=== PATIENT | female | born 1940 | race Caucasian/White ===

== ENCOUNTER 2020-08-22 16:01 | Inpatient (IN) | payer OTHER ==
[~2020-08-22 16:01] MED LIST: ALLEGRA ALLERG180 M1 PO; ASCORBIC ACID500 MG PO; ASPIRIN EC81 MG PO; CITALOPRAM HBR20 MG PO; COREG 6.25MG6.25 MG PO; COUMADIN 2MG TAB2 MG PO; COUMADIN1 MG PO; COUMADIN3 MG PO; COZAAR50 MG PO; IRON PO; KLOR-CON M 1010 MEQ PO; LASIX80 MG PO; PRILOSEC20 MG PO; REMERON15 MG PO; SYNTHROID75 MCG PO; TURMERIC500 M1 PO; VITAMIN D3 PO
[2020-08-22 16:55] LABS: BASOPHIL 0.4 % (0-2); EOSINOPHIL 2.1 % (0-7); HCT 32.9 % (37.0-47.0); HGB 9.8 g/dl (12.5-16.0); LYMPHOCYTE 24.6 % (15-48); MCH 29.3 pg (25.0-31.0); MCHC 29.8 g/dL (32.0-36.0); MCV 98.2 fL (78.0-100.0); MONOCYTE 13.7 % (0-12); MPV 10.8 fL (6.0-9.5); NEUTROPHIL 57.1 % (41-80); NRBC 0.3; PLT 197 K/uL (150-400); RBC 3.35 M/uL (4.20-5.40); RDW 16.7 % (11.5-14.0); WBC 7.3 K/uL (4.0-10.5)
[2020-08-22 17:05] LABS: ALBUMIN 2.4 g/dL (3.4-5.0); BILIRUBIN - TOTAL 0.6 mg/dL (0.2-1.0); CREATININE 0.94 mg/dL (0.51-0.95); GLOBULIN (CALCULATION) 3.8 g/dL; POTASSIUM 3.4 mmol/L (3.5-5.1); TOTAL PROTEIN 6.2 g/dL (6.4-8.2)
[2020-08-22 17:09] LABS: LACTIC ACID 0.8 mmol/L (0.4-1.9)
[2020-08-22 17:21] LABS: INR 3.5 (0.9-1.2); PROTHROMBIN TIME 33.5 SECONDS (11.4-13.6)
[2020-08-22 19:20] LABS: BILIRUBIN NEGATIVE (NEGATIVE); BLOOD NEGATIVE Ery/uL (NEGATIVE); CLARITY CLEAR (CLEAR); COLOR YELLOW (YELLOW); GLUCOSE (U) NORMAL (NORMAL); LEUKOCYTES NEGATIVE Leu/uL (NEGATIVE); NITRITE NEGATIVE (NEGATIVE); PROTEIN NEGATIVE (NEGATIVE)
[2020-08-22] MEDS ORDERED: LASIX40 MG PO (23:57)
[2020-08-22] MEDS ORDERED: IRON18 MG PO (23:57)
[2020-08-22] MEDS ORDERED: CELEBREX 200MG200 MG PO (23:57)
[2020-08-22] MEDS ORDERED: PRILOSEC20 MG PO (23:58)
[2020-08-22] MEDS ORDERED: ASCORBIC ACID500 MG PO (23:58)
[2020-08-22] MEDS ORDERED: PROTONIX 40MG T40 MG PO (23:59)
[2020-08-23] MEDS ORDERED: ASPIRIN325 MG PO
[2020-08-23] MEDS ORDERED: SYNTHROID25 MCG PO
[2020-08-23] MEDS ORDERED: SINGULAIR10 MG PO (00:01)
[2020-08-23] MEDS ORDERED: CELEXA10 MG PO (00:02)
[2020-08-23] MEDS ORDERED: POTASSIUM CHLOR8 MEQ PO (00:02)
[2020-08-23] MEDS ORDERED: VITAMIN D310 MC3 PO (00:03)
[2020-08-23] MEDS ORDERED: COREG 6.25MG6.25 MG PO (00:03)
[2020-08-23] MEDS ORDERED: JANTOVEN1 MG PO (00:05)
[2020-08-23] MEDS ORDERED: VENTOLIN HFA IN18 GM INH (00:08)
[2020-08-23] MEDS ORDERED: PROVENTIL2 MG/5 ML INH (00:10)
--- NOTE | 2020-08-23 01:29 | NUR ---
PATIENT STATED HAS HOME CPAP AND DID NOT BRING. DOES WEAR 2L OXYGEN AT HOME AND CURRENTLY ON 2LNC. DAUGHTER AT BEDSIDE. 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
[2020-08-23 05:56] LABS: INR 3.47 (0.9-1.2); PROTHROMBIN TIME 33.3 SECONDS (11.4-13.6)
[2020-08-23 06:14] LABS: BUN/CREAT RATIO (CALC) 14.4 RATIO; CREATININE 0.9 mg/dL (0.51-0.95); FT4 (FREE T4) 1.2 ng/dL (0.76-1.46); POTASSIUM 4.5 mmol/L (3.5-5.1)
[2020-08-23 06:18] LABS: MAGNESIUM 2.7 mg/dL (1.8-2.4)
[2020-08-23 06:36] LABS: BASOPHIL 0.7 % (0-2); EOSINOPHIL 1.7 % (0-7); HCT 34.2 % (37.0-47.0); HGB 9.7 g/dl (12.5-16.0); LYMPHOCYTE 24.4 % (15-48); MCHC 28.4 g/dL (32.0-36.0); MCV 102.1 fL (78.0-100.0); MONOCYTE 14.8 % (0-12); MPV 10.8 fL (6.0-9.5); NEUTROPHIL 55.9 % (41-80); NRBC 0.5; PLT 222 K/uL (150-400); RBC 3.35 M/uL (4.20-5.40); WBC 9.2 K/uL (4.0-10.5)
[2020-08-23 15:07] LABS: RETICULOCYTE COUNT 3.8 % (1.0-2.0)
[2020-08-23 15:18] LABS: IRON % SATURATION 11.5 %SAT (20-50)
[2020-08-23 15:43] LABS: FOLIC ACID (SERUM) 16.7 ng/mL (8.6-58.9)
--- NOTE | 2020-08-24 05:16 | NUR ---
PT. GOT COMBATIVE AND CONFUSED ON WHERE SHE WAS AROUND 2100 08/23/20. HALDOL 2.5MG IM WAS ORDERED AND SCANNED WITH INTENTIONS OF BEING GIVEN BUT WAS NOT GIVEN. PT. SEEMED TO SETTLE DOWN AND REST AND THE HALDOL WAS NOT GIVEN. COULD NOT GO BACK AND CHART AGAINST BECAUSE IT FELL OF EMAR.
[2020-08-24 06:23] LABS: BASOPHIL 0.7 % (0-2); EOSINOPHIL 1.9 % (0-7); HCT 30.7 % (37.0-47.0); LYMPHOCYTE 33.4 % (15-48); MCH 29.3 pg (25.0-31.0); MCHC 29.3 g/dL (32.0-36.0); MONOCYTE 11.3 % (0-12); MPV 10.8 fL (6.0-9.5); NEUTROPHIL 50.3 % (41-80); NRBC 0.3; PLT 231 K/uL (150-400); RBC 3.07 M/uL (4.20-5.40); RDW 17.1 % (11.5-14.0); WBC 6.8 K/uL (4.0-10.5)
[2020-08-24 06:24] LABS: INR 2.77 (0.9-1.2); PROTHROMBIN TIME 27.9 SECONDS (11.4-13.6)
[2020-08-24 06:39] LABS: BUN 11 mg/dL (7-18); BUN/CREAT RATIO (CALC) 10.3 RATIO; CHLORIDE 106 mmol/L (98-107); CO2 (BICARBONATE) 31 mmol/L (21-32); CREATININE 1.07 mg/dL (0.51-0.95); GLUCOSE 94 mg/dL (74-106); MAGNESIUM 2.3 mg/dL (1.8-2.4)
[2020-08-24 06:54] LABS: PRO-BNP 2673 pg/mL (<450)
--- NOTE | 2020-08-24 17:01 | NUR ---
08/24/2020 Ms. Whitman shares a home with her spouse and daughter. She has home 02, C-PAP, rw, and [id number]. VNA is current. Patient wisshes to continue with VNA at discharge. VNA ref made via [employer]; affliaition explained.
[2020-08-25 06:20] LABS: PROTHROMBIN TIME 29.7 SECONDS (11.4-13.6)
[2020-08-25 06:34] LABS: BUN/CREAT RATIO (CALC) 13.5 RATIO; CREATININE 0.96 mg/dL (0.51-0.95); POTASSIUM 4.4 mmol/L (3.5-5.1)
[2020-08-25] MEDS ORDERED: JANTOVEN1 MG PO (11:32)
[2020-08-25] MEDS ORDERED: PREDNISONE 10MG10 MG PO (11:32)
[2020-08-25] MEDS ORDERED: SPIRIVA 18MCG18 MCG INH (11:46)
[2020-08-25] MEDS ORDERED: ADVAIR 100-501 EACH INH (11:46)
[2020-08-25] MEDS ORDERED: CARDIZEM CD180 MG PO (11:59)
== END 2020-08-25 13:40 | disposition home or self-care (01) | DRG 308 ==
LOC: FER 16:01 → FICU 23:19 → FTCU 08-24 14:15
PROVIDERS: Emergency Medicine; Internal Medicine; ADMIT Allergy & Immunology
DX: I48.0 Paroxysmal atrial fibrillation (principal); I50.23 Acute on chronic systolic (congestive) heart failure; J44.1 Chronic obstructive pulmonary disease with (acute) exacerbation; J96.10 Chronic respiratory failure, unspecified whether with hypoxia or hypercapnia; I11.0 Hypertensive heart disease with heart failure; T45.515A Adverse effect of anticoagulants, initial encounter; Z20.828 Contact with and (suspected) exposure to other viral communicable diseases; G47.33 Obstructive sleep apnea (adult) (pediatric); K21.9 Gastro-esophageal reflux disease without esophagitis; G40.909 Epilepsy, unspecified, not intractable, without status epilepticus; E78.5 Hyperlipidemia, unspecified; I25.10 Atherosclerotic heart disease of native coronary artery without angina pectoris; F03.90 Unspecified dementia, unspecified severity, without behavioral disturbance, psychotic disturbance, mood disturbance, and anxiety; Z99.81 Dependence on supplemental oxygen; Z95.1 Presence of aortocoronary bypass graft; Z87.891 Personal history of nicotine dependence; Z90.710 Acquired absence of both cervix and uterus; Z98.890 Other specified postprocedural states; Z79.82 Long term (current) use of aspirin; Z79.01 Long term (current) use of anticoagulants; Z79.899 Other long term (current) drug therapy; Z95.2 Presence of prosthetic heart valve; E03.9 Hypothyroidism, unspecified; I25.5 Ischemic cardiomyopathy
CPT/HCPCS: 36415; 71045; 80048; 80053; 80162; 81003; 82150; 82607; 82746; 83540; 83550; 83605; 83735; 83880; 84145; 84439; 84443; 84484; 85025; 85610; 87040; 93005; 94010; 94640; 94762; 97162; 97166; 97530; 97535; J1630; J1940; J2916; J3475; J7050; J7512; U0002

== ENCOUNTER 2021-01-16 04:04 | Day surgery (SDCO) | payer OTHER ==
[~2021-01-16 04:04] MED LIST changes: +ADVAIR 100-501 EACH INH; +ASPIRIN325 MG PO; +CARDIZEM CD180 MG PO; +CELEBREX 200MG200 MG PO; +CELEXA10 MG PO; +IRON18 MG PO; +JANTOVEN1 MG PO; +LASIX40 MG PO; +POTASSIUM CHLOR8 MEQ PO; +PREDNISONE 10MG10 MG PO; +PROTONIX 40MG T40 MG PO; +PROVENTIL2 MG/5 ML INH; +SINGULAIR10 MG PO; +SPIRIVA 18MCG18 MCG INH; +SYNTHROID25 MCG PO; +VENTOLIN HFA IN18 GM INH; +VITAMIN D310 MC3 PO
[2021-01-16 04:58] LABS: BASOPHIL 0.3 % (0-2); EOSINOPHIL 0.9 % (0-7); HCT 33.4 % (37.0-47.0); HGB 10.2 g/dl (12.5-16.0); LYMPHOCYTE 15.3 % (15-48); MCH 28.3 pg (25.0-31.0); MCHC 30.5 g/dL (32.0-36.0); MCV 92.5 fL (78.0-100.0); MONOCYTE 4.2 % (0-12); MPV 11.1 fL (6.0-9.5); NEUTROPHIL 78.6 % (41-80); NRBC 0; PLT 233 K/uL (150-400); RBC 3.61 M/uL (4.20-5.40); RDW 15.6 % (11.5-14.0); WBC 10.9 K/uL (4.0-10.5)
[2021-01-16 05:08] LABS: INR 1.59 (0.9-1.2); PTT 27.2 SECONDS (22.2-34.7)
[2021-01-16 05:15] LABS: ALBUMIN 3.1 g/dL (3.4-5.0); BILIRUBIN - TOTAL 0.4 mg/dL (0.2-1.0); BUN/CREAT RATIO (CALC) 20.3 RATIO; CREATININE 1.23 mg/dL (0.51-0.95); GLOBULIN (CALCULATION) 3.8 g/dL; POTASSIUM 3.5 mmol/L (3.5-5.1); TOTAL PROTEIN 6.9 g/dL (6.4-8.2)
[2021-01-16 07:36] LABS: LACTIC ACID 1.7 mmol/L (0.4-1.9)
[2021-01-16] MEDS ORDERED: ALLEGRA ALLERG180 M1 PO (12:05)
[2021-01-16] MEDS ORDERED: JANTOVEN3 MG PO (12:08)
--- NOTE | 2021-01-16 13:55 | NUR ---
PATIENT CAME UP TO THE FLOOR AGGITATED AND CONFUSED. DAUGHTER AT BEDSIDE. PATIENT WAS CONFUSED AND WAS NOT ABLE TO FOLLOW ANY COMMANDS, PULLING WIRES OFF, TAKING PULSE OX OFF FINGER AND THEN TRIED TO PULL OUT IV. ONCE PATIENT WAS IN THE BED PATIENT WOULD NOT ALLOW ME TO ASSESS HER OR APPLY HEART MONITOR AND BEGAN TO TRY TO HIT, BITE AND KICK ME. SHE ENDED UP PULLING OUT #18LAC IV AND WAS VERY AGGRESIVE. PATIENT WOULD LISTEN TO DAUGHTER. STAFF TRIED TO REASON AND OCCUPY PATIENT WITH OTHER ACTIVITIES WITH NO SUCCESS. A TOTAL 1MG OF ATIVAN AND 5MG OF GEODON. ALL DID NOT PHASE THE PATIENT BEHAVIOR. PATIENT SCAN FROM THE ED SHOWED [place] OPACITIES WITH COULD BE POSSIBLE COVID AND DR REQUESTED PATIENT BE TESTED FOR COVID. FAMILY DENIED FOR PATIENT TO BE TESTED. PER POLICY TOLD THE FAMILY THAT IF THEY DO NOT WANT TO GET TESTED AND THE PATIENT DAUGHTER WOULD NOT BE ABLE TO STAY PER POLICY SINCE PRECAUTIONS WERE IN PLACE. FAMILY STATED THEY WOULD HAVE TO SIGN OUT AMA. DID NOT WANT TO LEAVE PATIENT ALONE AND DID NOT WANT PATIENT TESTED. STATED HE DOES NOT BELIEVE COVD IS REAL AND DOES NOT BELIEVE IN VACCINATIONS. DAUGHTER SIGNED AMA PAPERS. ZACK CALLED AND ADMINISRATION HAD APPROVED FOR FAMILY TO STAY WITH PATIENT EVEN THOUGH POLICY STATES NO VISITORS WITH PRECAUTION PATIENTS. FAMILY AGREED TO STAY WITH PATIENT. PATIENT ENDED UP PULLING OUT 2ND IV #22RH. HAND WAS BANDAGED. I SPOKE WITH FAMILY AND EXPLAINED THAT THE FLUIDS WITH BE D/C, VITALS, LABS AND MEDS WILL BE TAKEN. DAUGHTER UNDERSTOOD. IV WILL BE RESTARTED ONCE PATIENT IS CALMED DOWN SOME. BEHAVIOR IS STILL AGGRESIVE AND COMBATIVE. DAUGHTER IS AT BEDSIDE TO HELP MANAGE PATIENT. PATIENT DOES NOT UNDERSTAND THE SITUATION AND DOES NOT FOLLOW COMMANDS FROM STAFF OR DAUGHTER. LAB WAS NOT ABLE TO GET ANY TUBES DUE TO PATIENT BEING COMBATIVE EVEN THOUGH DAUGHTER AND MYSELF WAS TRYING TO HOLD PATIENT IN PLACE AND COOPERATE. PATIENT WOULD NOT ALLOW MY REPLACE HEART MONITOR OR IV AT THIS TIME. WILL REASSESS SHORTLY. AND MELANIE DIXON HAVE BEEN MADE AWARE OF THE SITUATION.
[2021-01-16 17:44] LABS: HCT 31.2 % (37.0-47.0); HGB 9.9 g/dL (12.5-16.0)
--- NOTE | 2021-01-17 05:46 | NUR ---
LAB TECNICIAN REPORTED THAT SHE COULD NOT DRAW BLOOD FOR LABS DUE TO PATIENT BEING NON-COMPLIANT WITH CARE.
== END 2021-01-17 12:34 | disposition home or self-care (01) ==
LOC: FER 04:04 → FTCU 07:20
PROVIDERS: Emergency Medicine Emergency Medical Services; ADMIT Internal Medicine
DX: K92.2 Gastrointestinal hemorrhage, unspecified (principal); F03.90 Unspecified dementia, unspecified severity, without behavioral disturbance, psychotic disturbance, mood disturbance, and anxiety; I95.9 Hypotension, unspecified; I11.0 Hypertensive heart disease with heart failure; I50.9 Heart failure, unspecified; I48.20 Chronic atrial fibrillation, unspecified; K57.30 Diverticulosis of large intestine without perforation or abscess without bleeding; J44.9 Chronic obstructive pulmonary disease, unspecified; I25.10 Atherosclerotic heart disease of native coronary artery without angina pectoris; G47.33 Obstructive sleep apnea (adult) (pediatric); I42.9 Cardiomyopathy, unspecified; J96.10 Chronic respiratory failure, unspecified whether with hypoxia or hypercapnia; K21.9 Gastro-esophageal reflux disease without esophagitis; E78.5 Hyperlipidemia, unspecified; Z99.81 Dependence on supplemental oxygen; Z95.1 Presence of aortocoronary bypass graft; Z99.89 Dependence on other enabling machines and devices; Z87.891 Personal history of nicotine dependence; Z88.8 Allergy status to other drugs, medicaments and biological substances; Z79.01 Long term (current) use of anticoagulants; Z79.82 Long term (current) use of aspirin; Z79.899 Other long term (current) drug therapy
CPT/HCPCS: 36415; 80053; 82150; 83605; 83690; 84484; 85014; 85018; 85025; 85610; 85730; 86850; 86900; 86901; 93005; 94640; C9113; G0378; J2060; J2354; J3486; J7030